=== PATIENT | female | born 1995 | race Two or more races ===

== ENCOUNTER 2020-09-05 16:52 | Emergency (ER) | payer MEDICAID ==
[~2020-09-05] VITALS: Ht 170.2 cm; Wt 79.4 kg
--- NOTE | 2020-09-05 16:58 | NUR ---
PT AMBULATORY TO ER BED 03 C/O LLQ ABDOMINAL PAIN X 4 DAYS. PT IS POST OP C SECTION AFTER GIVEN . DENIES NAUSEA AND VOMITING. VSS. AWAITING MD MORALES.
--- NOTE | 2020-09-05 17:14 | NUR ---
FERNANDEZP PA AT BEDSIDE FOR EVAL.
--- NOTE | 2020-09-05 17:24 | NUR ---
IV LINE STARTED BLOOD DRAWN AND SENRT TO LAB.
[2020-09-05 17:30] LABS: BASOPHILS # (AUTO) 0.1 /CMM (0.0-0.2); BASOPHILS % (AUTO) 0.9 % (0.0-2.0); HEMATOCRIT 41 % (33-45); HEMOGLOBIN 13.6 g/dL (11.5-14.8); LYMPHOCYTES # (AUTO) 2.9 /CMM (0.8-4.8); MEAN CORPUSCULAR HGB CONC 34 g/dl (31.0-36.0); MEAN CORPUSCULAR VOLUME 89 fL (82-100); MONOCYTES # (AUTO) 0.6 /CMM (0.1-1.30); MONOCYTES % (AUTO) 7.4 % (2.0-12.0); NEUTROPHILS # (AUTO) 4.3 /CMM (1.8-8.9); NEUTROPHILS % (AUTO) 51.7 % (43.0-81.0); PLATELET COUNT (AUTO) 322 /CMM (150-450); RED BLOOD CELL COUNT(AUTO) 4.55 MIL/uL (4.0-5.2); WHITE BLOOD COUNT (AUTO) 8.4 K/uL (4.3-11.0)
[2020-09-05 17:33] LABS: BILIRUBIN,URINE Negative (NEGATIVE); COLOR,URINE YELLOW (YELLOW); LEUKOCYTE ESTERASE ,URINE Small (NEGATIVE); NITRITE, URINE Positive (NEGATIVE); PROTEIN,URINE Negative (NEGATIVE); UGLUCOSE Negative (NEGATIVE); UROBILINOGEN,URINE 0.2 EU/dL (0.2)
[2020-09-05 17:40] LABS: CALCIUM, SERUM 9.8 mg/dL (8.5-10.1); CREATININE 0.8 mg/dL (0.6-1.3); POTASSIUM 3.9 mmol/L (3.5-5.1)
[2020-09-05 17:43] LABS: BACTERIA,URINE Many /HPF (None Seen); RBC,URINE 21-50 /HPF (0-2); SQUAMOUS EPITHELIAL CELL,UR Few /HPF (None Seen)
[2020-09-05 17:46] LABS: ALBUMIN 3.9 g/dL (3.4-5.0); BILIRUBIN,TOTAL 0.2 mg/dL (0.2-1.0); TOTAL PROTEIN, SERUM 7.8 g/dL (6.4-8.2)
[2020-09-05] MEDS ORDERED: IOHEXOL-300 100 ML VIAL IV ONE (17:47)
[2020-09-05] MEDS ORDERED: IV NS 0.9% 250 ML IV ONE (17:47)
--- NOTE | 2020-09-05 17:50 | NUR ---
PT TO RADIOLOGY FOR ABDOMINAL CT SCAN VIA [facility].
[2020-09-05] MEDS ORDERED: CEPHALEXIN MONOHYDRATE 500 MG CAPSULE PO ONE ×2 (18:30→18:33)
[2020-09-05] MEDS ORDERED: ACET-2605 PO (18:31)
[2020-09-05] MEDS ORDERED: CEPH500C2 PO (18:31)
--- NOTE | 2020-09-05 18:57 | NUR ---
Patient discharged to home in stable condition. Written and verbal after care instructions given. Patient verbalizes understanding of instruction.IV removed. Catheter intact and site benign. Pressure and 4x4 applied to site. No bleeding noted.
[2020-09-05 18:58] VITALS: BP 131/84
== END 2020-09-05 18:58 | disposition home or self-care (01) ==
LOC: ER 17:02
DX: N39.0 Urinary tract infection, site not specified (principal); Z98.890 Other specified postprocedural states
CPT/HCPCS: 36415; 74177; 80048; 80076; 81001; 83690; 84702; 84703; 85025; 99285; J7050; Q9967; 87086-TC

== ENCOUNTER 2021-04-09 12:15 | Emergency (ER) | payer MEDICAID, OTHER ==
[~2021-04-09] VITALS: Ht 170.2 cm; Wt 90.7 kg
[~2021-04-09 12:15] MED LIST: ACET-2605 PO; CEPH500C2 PO
[2021-04-09 12:49] VITALS: BP 108/55
--- NOTE | 2021-04-09 12:50 | NUR ---
TO ER BED 1, BIBSELF C/O RASH ON CHEST AREA STARTED AT 11AM, NO HISTORY OF ALLERGIES, DENIES SOB, AAOX3, BREATHING EVEN AND NON LABORED
[2021-04-09] MEDS ORDERED: HYDR28.32 TP (13:03)
[2021-04-09] MEDS ORDERED: CETI-90 PO (13:03)
--- NOTE | 2021-04-09 13:13 | NUR ---
Patient discharged to home in stable condition. Written and verbal after care instructions given. Patient verbalizes understanding of instruction.
== END 2021-04-09 13:15 | disposition home or self-care (01) ==
LOC: ER 12:18
DX: L30.9 Dermatitis, unspecified (principal); Z98.890 Other specified postprocedural states

== ENCOUNTER 2021-12-07 22:49 | Emergency (ER) | payer MEDICAID ==
[~2021-12-07] VITALS: Ht 170.2 cm; Wt 70.3 kg
[~2021-12-07 22:49] MED LIST changes: +CETI-90 PO; +HYDR28.32 TP
[2021-12-07 23:28] VITALS: BP 131/89
[2021-12-07] MEDS ORDERED: CEPH500C2 PO (23:34)
--- NOTE | 2021-12-07 23:37 | NUR ---
Patient discharged to home in stable condition. Written and verbal after care instructions given. Patient verbalizes understanding of instruction.
== END 2021-12-07 23:37 | disposition home or self-care (01) ==
LOC: ER 22:51
DX: N61.0 Mastitis without abscess (principal); Z79.899 Other long term (current) drug therapy